=== PATIENT | male | born 1970 | race Caucasian/White ===

== ENCOUNTER 2018-01-26 21:05 | Emergency (ER) | payer MEDICAID ==
[~2018-01-26] VITALS: Ht 177.8 cm; Wt 65.8 kg
[2018-01-26 21:27] VITALS: BP_SYST 128
[2018-01-26] MEDS ORDERED: HYDROcodone/ACETAMIN 5-325 MG TAB (NORCO/ VICODIN) PO ONE (23:30)
[2018-01-27 07:09] VITALS: BP_SYST 115
== END 2018-01-27 07:09 | disposition home or self-care (01) ==
LOC: SED 21:05
DX: S42.212A Unspecified displaced fracture of surgical neck of left humerus, initial encounter for closed fracture (principal); V03.90XA Pedestrian on foot injured in collision with car, pick-up truck or van, unspecified whether traffic or nontraffic accident, initial encounter; Y93.89 Activity, other specified; Y92.410 Unspecified street and highway as the place of occurrence of the external cause; Y99.8 Other external cause status
CPT/HCPCS: 72100-TC; 99283

== ENCOUNTER 2020-01-01 23:47 | Emergency (ER) | payer MEDICAID ==
[~2020-01-01] VITALS: Ht 177.8 cm; Wt 65.8 kg
[2020-01-02 00:20] VITALS: BP_SYST 96
--- NOTE | 2020-01-02 00:20 | NUR ---
ER Dr. Coelho in triage examining patient.
--- NOTE | 2020-01-02 00:54 | NUR ---
Provided meal tray for patient.
--- NOTE | 2020-01-02 01:22 | NUR ---
Patient walked out ER.
== END 2020-01-02 01:22 | disposition left against medical advice (07) ==
LOC: SED 23:47
DX: Z59.0 Homelessness (principal)
CPT/HCPCS: 99281